=== PATIENT | female | born 1950 | race Two or more races ===

== ENCOUNTER 2017-11-29 14:13 | Outpatient (CLI) | payer OTHER | END 2017-11-29 15:43 | disposition home or self-care (01) | LOC: NUCLEAR 14:13 | DX: M81.0 Age-related osteoporosis without current pathological fracture (principal) ==

== ENCOUNTER 2017-12-06 10:16 | Outpatient (CLI) | payer OTHER | END 2017-12-06 10:32 | disposition home or self-care (01) | LOC: LAB 10:16 | DX: Z51.81 Encounter for therapeutic drug level monitoring (principal); C73 Malignant neoplasm of thyroid gland; E89.0 Postprocedural hypothyroidism; D64.89 Other specified anemias; E11.9 Type 2 diabetes mellitus without complications; E78.2 Mixed hyperlipidemia; K76.89 Other specified diseases of liver; E03.8 Other specified hypothyroidism; E55.9 Vitamin D deficiency, unspecified; R29.898 Other symptoms and signs involving the musculoskeletal system; N83.209 Unspecified ovarian cyst, unspecified side; R10.84 Generalized abdominal pain; E78.4 Other hyperlipidemia; R80.8 Other proteinuria; I50.22 Chronic systolic (congestive) heart failure ==

== ENCOUNTER 2017-12-06 12:32 | Outpatient (CLI) | payer OTHER | END 2017-12-06 13:21 | disposition home or self-care (01) | LOC: MAMO-SONO 12:32 | DX: Z12.31 Encounter for screening mammogram for malignant neoplasm of breast (principal); Z87.898 Personal history of other specified conditions; N60.12 Diffuse cystic mastopathy of left breast; N60.11 Diffuse cystic mastopathy of right breast; R10.2 Pelvic and perineal pain; D25.9 Leiomyoma of uterus, unspecified; C73 Malignant neoplasm of thyroid gland; R10.84 Generalized abdominal pain | CPT/HCPCS: 72197; 76536; 76641; 76700; 77067; A9579 ==

== ENCOUNTER 2018-02-09 14:41 | Outpatient (CLI) | payer OTHER | END 2018-02-09 14:48 | disposition home or self-care (01) | LOC: LAB 14:41 | DX: C73 Malignant neoplasm of thyroid gland (principal); E89.0 Postprocedural hypothyroidism ==

== ENCOUNTER 2018-06-21 14:24 | Outpatient (CLI) | payer OTHER | END 2018-06-21 14:51 | disposition home or self-care (01) | LOC: LAB 14:24 | DX: D64.89 Other specified anemias (principal); E11.9 Type 2 diabetes mellitus without complications; E78.49 Other hyperlipidemia; K76.89 Other specified diseases of liver; E03.8 Other specified hypothyroidism; R29.898 Other symptoms and signs involving the musculoskeletal system; N30.00 Acute cystitis without hematuria ==

== ENCOUNTER 2018-09-16 15:52 | Outpatient (CLI) | payer OTHER | END 2018-09-16 16:02 | disposition home or self-care (01) | LOC: LAB 15:52 | DX: C73 Malignant neoplasm of thyroid gland (principal); E89.0 Postprocedural hypothyroidism ==